=== PATIENT | female | born 1975 | race Caucasian/White ===

== ENCOUNTER 2019-04-22 13:57 | Emergency (ER) | payer BC ==
[~2019-04-22] VITALS: Ht 162.6 cm; Wt 53.1 kg
[2019-04-22 14:00] VITALS: Ht 162.6 cm; Wt 53.1 kg
[2019-04-22 14:54] LABS: BASOPHIL % 0.2 % (0-2); PLATELET COUNT 180 x10^3mcL (130-400)
[2019-04-22 14:55] LABS: CALCIUM 9.7 mg/dL (8.5-10.1); CARBON DIOXIDE 24.6 mmol/L (21-32); CHLORIDE SERUM 104 mmol/L (98-107); CREATININE SERUM 0.6 mg/dL (0.6-1.0); GFR1 > 60 mL/min; GLUCOSE SERUM 93 mg/dL (74-106); POTASSIUM SERUM 3.3 mmol/L (3.5-5.1); SODIUM SERUM 141 mmol/L (136-145)
[2019-04-22 14:57] LABS: RED CELL DISTRIBUTION WIDTH 14.9 % (11.5-14.5)
[2019-04-22 14:59] LABS: ALKALINE PHOSPHATASE 72 U/L (46-116); ALT/SGPT 39 U/L (14-59); AST/SGOT 27 U/L (15-37); BILIRUBIN TOTAL 0.3 mg/dL (0.20-1.00)
[2019-04-22 15:14] LABS: UA SPECIFIC GRAVITY 1.015 (1.005-1.035); microscopic required? YES; urine erythrocyte TRACE (NEGATIVE)
[2019-04-22 16:40] VITALS: BP 108/72
== END 2019-04-22 16:40 | disposition home or self-care (01) ==
LOC: ED 13:57
PROVIDERS: Emergency Medicine
DX: R55 Syncope and collapse (principal); Z88.5 Allergy status to narcotic agent; Z88.8 Allergy status to other drugs, medicaments and biological substances
CPT/HCPCS: J7030; Q0092